=== PATIENT | female | born 1980 | race Asian ===

== ENCOUNTER 2016-10-09 00:48 | Inpatient (IN) | payer SELFPAY ==
[~2016-10-09] VITALS: Ht 152.4 cm; Wt 75.3 kg
[2016-10-09] MEDS ORDERED: OXYTOCIN/NORMAL SALINE 1,000 ML IV SCH ×3 (01:04→19:37)
[2016-10-09] MEDS ORDERED: AMPICILLIN SODIUM 2 GM in NS 100 ML IV ONE (01:15)
[2016-10-09] MEDS ORDERED: TERBUTALINE SULFATE 1 MG/ML VIAL SUBCUT ONE (01:15)
[2016-10-09] MEDS ORDERED: NALBUPHINE HCL 10 MG/ML AMP IVP PRN (01:15)
[2016-10-09 01:30] LABS: HEMOGLOBIN 12.4 g/dL (12.0-16.0)
[2016-10-09 01:32] VITALS: BP_SYST 104
[2016-10-09 01:33] LABS: BASOPHILS % (AUTO) 0.2 % (0.0-2.0); EOSINOPHILS # (AUTO) 0.2 K/uL (0.0-0.4); EOSINOPHILS % (AUTO) 2.1 % (0.0-4.0); HEMATOCRIT 36.2 % (36-48); LYMPHOCYTES # (AUTO) 1.6 K/uL (1.0-5.5); MEAN CORPUSCULAR HEMOGLOBIN 31 pg (27-31); MEAN CORPUSCULAR HGB CONC 34 % (32-36); MEAN CORPUSCULAR VOLUME 90 fL (79.0-98.0); MONOCYTES # (AUTO) 0.7 K/uL (0.0-1.0); MONOCYTES % (AUTO) 8.3 % (1.7-9.3); NEUTROPHILS # (AUTO) 6.4 K/uL (1.8-7.7); NEUTROPHILS % (AUTO) 71.4 % (40.0-70.0); PLATELET COUNT (AUTO) 163 K/uL (130-430); RED CELL DISTRIBUTION WIDTH 13.4 % (9.0-15.0); WHITE BLOOD COUNT (AUTO) 8.9 K/uL (4.8-10.8)
[2016-10-09] MEDS: LR 1,000 ML IV SCH ×3 (01:45→22:46)
[2016-10-09] MEDS ORDERED: AMPICILLIN SODIUM 2 GM VIAL ONE (01:49)
[2016-10-09] MEDS: AMPICILLIN SODIUM 1 GM in NS 50 ML IV SCH ×5 (05:46→22:47)
[2016-10-09] MEDS ORDERED: AMPICILLIN SODIUM 1 GM VIAL ONE ×2 (05:49→22:33)
[2016-10-09] MEDS ORDERED: FENT2mCg/mL-ROPIVA0.2%/NS EPID 150 ML EP ONE (19:39)
[2016-10-09] MEDS ORDERED: LR 500 ML IV ONE (20:07)
[2016-10-09] MEDS ORDERED: ePHEDrine sulfate 50 MG/ML VIAL IVP PRN (20:15)
[2016-10-09] MEDS ORDERED: FENT2mCg/mL-ROPIVA0.2%/NS EPID 150 ML EP SCH (20:15)
[2016-10-09] MEDS ORDERED: TERBUTALINE SULFATE 1 MG/ML VIAL SUBCUT PRN (22:45)
[2016-10-10] MEDS ORDERED: AMPICILLIN SODIUM 1 GM VIAL ONE (03:05)
[2016-10-10] MEDS: AMPICILLIN SODIUM 1 GM in NS 50 ML IV SCH ×2 (03:06→03:07)
[2016-10-10] MEDS ORDERED: LR 1,000 ML IV ONE (04:13)
[2016-10-10] MEDS ORDERED: CEFAZOLIN 2 GM IVPB PREMIX 50 ML IV ONE (04:15)
[2016-10-10] MEDS ORDERED: LR 1,000 ML IV SCH ×2 (05:10→06:56)
[2016-10-10] MEDS ORDERED: OXYTOCIN/NORMAL SALINE 1,000 ML IV ONE (05:10)
[2016-10-10] MEDS ORDERED: BISACODYL 10 MG/SUPPOSITORY RC PRN (05:15)
[2016-10-10] MEDS ORDERED: LANOLIN 7 GM OINT. TP PRN (05:15)
[2016-10-10] MEDS ORDERED: SENNOSIDES/DOCUSATE SODIUM 1 TAB TABLET(SENOKOT-S) PO PRN (05:15)
[2016-10-10] MEDS ORDERED: MEASLES,MUMPS&RUBELLA VACC/PF 12500 UNIT/0.5 ML VIAL SUBQ PRN (05:15)
[2016-10-10] MEDS ORDERED: RHO(D) IMMUNE GLOBULIN/MALTOSE 1500 UNITS/1.3 ML (WINHRO) IM PRN (05:15)
[2016-10-10] MEDS ORDERED: TEMAZEPAM 15 MG CAPSULE PO PRN (05:15)
[2016-10-10] MEDS ORDERED: HYDROcodone/ACETAMIN 5-325 MG TAB (NORCO/ VICODIN) PO PRN (05:15)
[2016-10-10] MEDS ORDERED: ANUSOL 1 EA SUPP.RECT (PREPARATION H) RC PRN (05:15)
[2016-10-10] MEDS ORDERED: ACETAMINOPHEN 325 MG TABLET PO PRN (05:15)
[2016-10-10] MEDS ORDERED: MORPHINE SULFATE 10MG/10ML PF AMP EP ONE (05:25)
[2016-10-10] MEDS ORDERED: OXYTOCIN 10 UNIT/ML VIAL IV ONE (05:25)
[2016-10-10] MEDS ORDERED: LR 1,000 ML IV.SOLN IV ONE (05:25)
[2016-10-10] MEDS ORDERED: NS IRRIG SOLN 1000 ML IR ONE (05:25)
[2016-10-10] MEDS ORDERED: METHYLERGONOVINE MALEATE 0.2 MG/ML AMP IM ONE (05:25)
[2016-10-10] MEDS ORDERED: LIDOCAINE MPF 2% 5mL VIAL INJ ONE (05:25)
[2016-10-10] MEDS ORDERED: ONDANSETRON HCL 4 MG/2 ML VIAL IVP ONE (05:25)
[2016-10-10] MEDS ORDERED: KETOROLAC TROMETHAMINE 30 MG VIAL ONE (06:32)
[2016-10-10] MEDS ORDERED: DIPHENHYDRAMINE INJ 50 MG/ML VIAL IM PRN (07:00)
[2016-10-10] MEDS ORDERED: MEPERIDINE HCL/PF 25 MG/ML DISP.SYRIN IVP PRN (07:00)
[2016-10-10] MEDS ORDERED: MORPHINE SULFATE 10MG/10ML PF AMP SP SCH (07:00)
[2016-10-10] MEDS ORDERED: METOCLOPRAMIDE HCL 10 MG/2 ML VIAL IVP PRN (07:00)
[2016-10-10] MEDS ORDERED: KETOROLAC TROMETHAMINE 60 MG/2 ML VIAL IM PRN (07:00)
[2016-10-10] MEDS ORDERED: ONDANSETRON HCL 4 MG/2 ML VIAL IVP PRN (07:00)
[2016-10-10] MEDS ORDERED: MEPERIDINE HCL/PF 50 MG/ML AMP IVP PRN ×2 (07:00)
[2016-10-10] MEDS ORDERED: NALOXONE HCL 0.4 MG/ML AMP (NARCAN) IVP PRN (07:00)
[2016-10-10 16:25] VITALS: BP_SYST 118
[2016-10-11 08:20] LABS: BASOPHILS % (AUTO) 0.2 % (0.0-2.0); EOSINOPHILS # (AUTO) 0.1 K/uL (0.0-0.4); EOSINOPHILS % (AUTO) 1.1 % (0.0-4.0); HEMATOCRIT 29.6 % (36-48); HEMOGLOBIN 9.9 g/dL (12.0-16.0); LYMPHOCYTES # (AUTO) 0.9 K/uL (1.0-5.5); LYMPHOCYTES % (AUTO) 8.1 % (20.5-51.5); MEAN CORPUSCULAR HEMOGLOBIN 31 pg (27-31); MEAN CORPUSCULAR HGB CONC 34 % (32-36); MEAN CORPUSCULAR VOLUME 91 fL (79.0-98.0); MONOCYTES # (AUTO) 0.6 K/uL (0.0-1.0); MONOCYTES % (AUTO) 5.3 % (1.7-9.3); NEUTROPHILS # (AUTO) 9.4 K/uL (1.8-7.7); NEUTROPHILS % (AUTO) 85.3 % (40.0-70.0); PLATELET COUNT (AUTO) 148 K/uL (130-430); RED BLOOD CELL COUNT(AUTO) 3.25 MIL/uL (4.2-6.2); RED CELL DISTRIBUTION WIDTH 13.8 % (9.0-15.0)
[2016-10-11] MEDS: DOCUSATE SODIUM 100 MG CAPSULE PO PRN ×2 (12:32→23:19)
[2016-10-11] MEDS: IBUPROFEN 600 MG TABLET PO SCH ×3 (12:33→23:19)
[2016-10-11] MEDS: SIMETHICONE 80 MG TAB.CHEW PO PRN (23:19)
[2016-10-12] MEDS: HYDROcodone/ACETAMIN 5-325 MG TAB (NORCO/ VICODIN) PO PRN ×2 (03:24→23:11)
[2016-10-12] MEDS: SIMETHICONE 80 MG TAB.CHEW PO PRN ×2 (05:44→17:30)
[2016-10-12] MEDS: IBUPROFEN 600 MG TABLET PO SCH ×4 (05:44→23:12)
[2016-10-12] MEDS ORDERED: FERROUS SULFATE 325 MG TABLET.DR PO SCH (15:00)
[2016-10-12] MEDS: DOCUSATE SODIUM 100 MG CAPSULE PO PRN (17:30)
[2016-10-13] MEDS: IBUPROFEN 600 MG TABLET PO SCH ×3 (06:54→18:03)
[2016-10-13] MEDS: DOCUSATE SODIUM 100 MG CAPSULE PO PRN (12:18)
[2016-10-13] MEDS: HYDROcodone/ACETAMIN 5-325 MG TAB (NORCO/ VICODIN) PO PRN (20:17)
== END 2016-10-13 23:50 | disposition home or self-care (01) | DRG 766 ==
LOC: SPU 00:48 → PREOBSVTOIN 12:45 → SPU 10-10 06:48
PROVIDERS: ADMIT Obstetrics & Gynecology; ATTEND Obstetrics & Gynecology
PROC: 10D00Z1 Extraction of Products of Conception, Low, Open Approach (ICD-10-PCS; 2016-10-10)
PROC: 3E0234Z Introduction of Serum, Toxoid and Vaccine into Muscle, Percutaneous Approach (ICD-10-PCS; 2016-10-10)
PROC: 4A0HXCZ Measurement of Products of Conception, Cardiac Rate, External Approach (ICD-10-PCS; principal; 2016-10-10 05:00)
DX: O62.2 Other uterine inertia (principal); O76 Abnormality in fetal heart rate and rhythm complicating labor and delivery; O69.81X0 Labor and delivery complicated by cord around neck, without compression, not applicable or unspecified; O99.824 Streptococcus B carrier state complicating childbirth; Z3A.40 40 weeks gestation of pregnancy; Z37.0 Single live birth; O09.513 Supervision of elderly primigravida, third trimester; Z23 Encounter for immunization
CPT/HCPCS: 36415; 81002-TC; 85025; 86886; 86900; 86901; 94760; A4618; J0290; J0690; J1885; J2001; J2210; J2274; J2405; J2590; J3010; J7120